=== PATIENT | female | born 1980 | race Caucasian/White ===

== ENCOUNTER 2017-06-02 15:00 | Inpatient (IN) | payer OTHER ==
[2017-06-02] MEDS ORDERED: LIDOCAINE 1% 300 MG/30 ML SDV ONE (21:57)
[2017-06-02] MEDS ORDERED: OLIVE OIL 118 ML BTL ONE (21:57)
[2017-06-02] MEDS ORDERED: OXYTOCIN 10 UNIT/ML VIAL ONE (21:58)
[2017-06-02] MEDS ORDERED: AMMONIA AROMATIC 1 EACH AMP IH ONE (21:58)
[2017-06-02] MEDS ORDERED: TERBUTALINE SULFATE 1 MG/ML VIAL ONE (21:58)
[2017-06-02] MEDS ORDERED: MISOPROSTOL 200 MCG TAB ONE (21:58)
[2017-06-02] MEDS ORDERED: LIDOCAINE 1% 300 MG/30 ML SDV SC PRN (22:22)
[2017-06-02] MEDS ORDERED: EPSOM SALT 454 GM TP PRN (22:22)
[2017-06-02] MEDS ORDERED: OLIVE OIL 118 ML BTL MISC PRN (22:22)
[2017-06-02] MEDS ORDERED: LR 1,000 ML IV PRN (22:22)
[2017-06-02] MEDS ORDERED: TERBUTALINE SULFATE 1 MG/ML VIAL IV PRN (22:22)
[2017-06-02] MEDS ORDERED: OXYTOCIN 20 UNIT in LR 1,000 ML IV PRN (22:22)
[2017-06-02 22:35] LABS: % IMMATURE GRANULYOCYTES 0.9 % (0.0-1.1); ABSOLUTE IMMATURE GRANULOCYTES 0.12 10^3/uL (0.00-0.10); ADD DIFF? NO; ADD MORPH? NO; ADD SCAN? NO; ATYPICAL LYMPHOCYTE FLAG 0 (0-99); FRAGMENT RBC FLAG 0 (0-99); HEMATOCRIT 37.2 % (38.0-47.0); LEFT SHIFT FLG 10 (0-99); LIPEMIA HEMOLYSIS FLAG 90 (0-99); MEAN CELL HEMOGLOBIN 30.3 pg (27.9-34.1); MEAN CELL HEMOGLOBIN CONCENTR. 34.9 g/dL (32.4-36.7); MEAN CELL VOLUME 86.7 fL (81.5-99.8); MEAN PLATELET VOLUME 12.3 fL (8.7-11.7); PLATELET CLUMPS FLAG 0 (0-99); PLATELET COUNT 205 10^3/uL (150-400); RED BLOOD CELL COUNT 4.29 10^6/uL (4.18-5.33)
[2017-06-02] MEDS ORDERED: fentaNYL 2MCG/ML/BUP 0.1% RTU 100 ML BAG EP ONE (22:41)
[2017-06-02] MEDS ORDERED: PHENYLEPHRINE HCL 100 MCG/ML SYR ONE (22:42)
[2017-06-02] MEDS ORDERED: fentaNYL 100 MCG/2 ML INJ ONE (22:42)
[2017-06-02] MEDS ORDERED: BUPIVACAINE 0.25% 30 ML SDV ONE (22:42)
--- NOTE | 2017-06-02 22:43 | OBPROG ---
Labor Progress Note Assessment/Plan: Assessment: Plan: Subjective/Intrapartum Course: 06/02/17 22:40 patient very uncomfortable and feeling more pressure. sve /-1. requesting epidural. anesthesia going to see patient now. Objective: 06/02/17 22:05 - SVE Dilation (cm): 5 Effacement (%): 90 Station: -1 Membranes: Intact - Contraction Pattern Assessment Current Contraction Pattern: Irregular - FHR Assessment Kinsey FHR (bpm): 150 FHR Pattern Variability: Moderate FHR Category: 1 - AP Antepartum Course: 06/02/17 22:41 initiated care at [facility] at 10 weeks. dated by LPM consistent with 10 week scan. negative innatal. abnormal 50 gram. normal 3 hour gtt. growth ultrasound at 30 weeks due to marginal cord insertion. Oxytocin Orders Assessment - Pre-Induction/Augmentation Assessment Gestational Age: 41 week(s) and 0 day(s) ICD10 Worksheet Patient Problems: Problems Problem Status Onset Delivery normal Acute First stage of labor Acute
--- NOTE | 2017-06-02 22:58 | GHP ---
[f rep st] HISTORY AND PHYSICAL DATE OF ADMISSION: 06/02/2017 ADMISSION DIAGNOSES: 1. Intrauterine 41 weeks' gestation. 2. Active labor. HISTORY OF PRESENT ILLNESS: The patient is a 37-year-old, 3, para 1-0-1-1, who is 41 weeks' gestation. She was seen in the office earlier today and was 2-3 cm dilated and contractions began in creasing in frequency and intensity. She arrived to Labor and Delivery and was found to be 4 cm dila fany and ladonna regularly. The patient's estimated date of confinement is 05/26/2017, dated by a last menstrual period of 08/25/2016, consistent with a 1st trimester ultrasound. Patient's pregnanc y has been complicated only by a marginal cord insertion for which she had a growth ultrasound in the 3rd trimester. The patient states there is good movement, but denies any vaginal bleeding or loss of fluid at this time. PAST MEDICAL HISTORY: History of shingles in September 2016. MEDICATIONS: vitamins and iron. PAST SURGICAL HISTORY: Breast augmentation at age 24. ALLERGIES: No known drug allergies. SOCIAL HISTORY: Patient is . She lives with her and their other child. She denies t obacco, alcohol, or drug use. FAMILY HISTORY: Noncontributory. ALLERGIES: No known drug allergies. CONTROL PANEL TESTER HISTORY: Menarche at age 16. Periods every 28 days, lasting 3-4 days. She is a 3, p rebekah 1-0-1-1. In 2009, she had a spontaneous vaginal delivery at [facility], of a 6-pound 14 -ounce male at 38 weeks' gestation. That child has a different father than the baby of the cu rrent . She denies any complications with that or delivery. In 07/2015, she had a spontaneous that did not require a d and C. Current has been uncomplicated. issac initiated care with [facility] in the 1st trimester. The patient denies any his tory of any abnormal Pap smears or sexually transmitted diseases. PHYSICAL EXAMINATION: VITAL SIGNS: Stable. GENERAL APPEARANCE: Alert and oriented x3, but uncomfo rtable. PSYCH: She has appropriate affect. MUSCULOSKELETAL: Grossly intact. NEUROLOGIC: Grossly intact. NECK: Mobile and supple. HEART: Rate is regular. LUNGS: Clear to auscultation bilatera lly. ABDOMEN: Gravid, nondistended, nontender. EXTREMITIES: Reveal no calf tenderness or edema. PELVIC: She is 4 cm dilated and -1 station. heart tracing is category 1. She is ladonna every 3 minutes, and is in the vertex presentation. LABORATORY DATA: The patient's labs: Blood type O positive. Antibody screen negative. Ru rajinder immune. GBS negative. HBsAg negative. HIV negative. Her 50 g glucose was 147. Her 3-0 gluc ose tolerance test was within normal limits. She had a negative screen. REVIEW OF SYSTEMS: A 10-point review of systems is negative. She states positive contractions. No loss of fluid. No vaginal bleeding. Denies any headache or changes in vision. ASSESSMENT/PLAN: A 37-year-old, 3, para 1-0-1-1, who is 41 weeks' gestation, who presents in active labor. She is requesting an epidural and will be managed expectantly. /[id number]/MODL
--- NOTE | 2017-06-03 | OBPROG ---
Labor Progress Note Assessment/Plan: Assessment: Plan: Subjective/Intrapartum Course: 06/02/17 22:40 patient very uncomfortable and feeling more pressure. sve 5/90/-1. requesting epidural. anesthesia going to see patient now. 06/02/17 23:57 patient was comfortable with epidural. made rapid progress to complete. had decel to 70's. good variability. arom - but scant fluid noted. phenylephrine given for low blood pressure. began pushing. not able to push well secondary to not feeling any of the pressure. fhts recovered between contractions. will labor down until patient feels more urge to push or heart tones show an indication to begin pushing. will start pitocin as needed. Objective: 06/02/17 22:05 Patient ABO/Rh O POSITIVE 06/02/17 22:05 - SVE Effacement (%): 100 Station: 0 Membranes: Intact Dilation Complete Date: 06/02/17 Dilation Complete Time: 23:08 - Contraction Pattern Assessment Current Contraction Pattern: Irregular - Procedures Non-surgical Procedures: Amniotomy - AP Antepartum Course: 06/02/17 22:41 initiated care at [facility] at 10 weeks. dated by LPM consistent with 10 week scan. negative innatal. abnormal 50 gram. normal 3 hour gtt. growth ultrasound at 30 weeks due to marginal cord insertion. Oxytocin Orders Assessment - Pre-Induction/Augmentation Assessment Gestational Age: 41 week(s) and 0 day(s) ICD10 Worksheet Patient Problems: Problems Problem Status Onset First stage of labor Acute
--- NOTE | 2017-06-03 00:43 | PREANESOB ---
Obstetric Pre-Anesthesia Info - General Info Proposed Procedure: Labor and delivery. : 3 Para: 1 TIMOTHY: 05/26/17 Gestational Age: 41 week(s) and 0 day(s) - Info Status: Postmature Monitors: External FHR Baseline (bpm): 130 FHR Pattern: Reassuring - Labor Status Cervical Dilation per last OB SVE: 7 Station per last OB SVE: 0 Indications for Labor Analgesia: Pain Control Labor Epidural: Proposed Anesthesia ROS: Prior labor epidural. Allergies/Adverse Reactions: Allergy/AdvReac Type Severity Reaction Status Date / Time No Known Allergies Allergy Unverified 06/02/17 22:21 Home Medications: Medication Instructions Recorded Vitamin Tablet 1 tab PO DAILY 06/02/17 Visit Medications: Generic Name Dose Route Start Last Admin Trade Name Freq PRN Reason Stop Dose Admin Lactated Ringer's 1,000 mls @ 0 mls/hr 06/02/17 22:22 Lr IV 11/29/17 22:21 PRN PRN SEE PROTOCOL CONDITIONS Protocol Per Protocol Oxytocin 20 unit/ Lactated 1,002 mls @ 150 mls/hr 06/02/17 22:22 Ringer's IV PRN PRN Post- bleeding Ibuprofen 600 mg 06/02/17 22:22 Motrin PO 11/29/17 22:21 Q6HRS PRN post , inflammation Lidocaine HCl 300 mg 06/02/17 22:22 Lidocaine Hcl 1% SC 11/29/17 22:21 ONCE PRN episiotomy Magnesium Sulfate 454 gm 06/02/17 22:22 Epsom Salt TP 11/29/17 22:21 Q1H PRN perineal discomfort [place] Oil 118 ml 06/02/17 22:22 Sweet Oil MISC 11/29/17 22:21 ONCE PRN perineal massage Terbutaline Sulfate 0.25 mg 06/02/17 22:22 Brethine IV 11/29/17 22:21 ONCE PRN Tachysystole Discontinued Medications Generic Name Dose Route Start Last Admin Trade Name Freq PRN Reason Stop Dose Admin Ammonia (Aromatic Spirit) Confirm 06/02/17 21:58 Ammonia Aromatic Administered 06/02/17 21:59 Dose 1 each IH .STK-MED ONE Bupivacaine HCl Confirm 06/02/17 22:42 Sensorcaine 0.25% Sdv Administered 06/02/17 22:43 Dose 30 ml .ROUTE .STK-MED ONE Ephedrine Sulfate Confirm 06/02/17 21:58 Ephedrine Sulfate Administered 06/02/17 21:59 Dose 50 mg .ROUTE .STK-MED ONE Fentanyl Confirm 06/02/17 22:42 Sublimaze Administered 06/02/17 22:43 Dose 100 mcg .ROUTE .STK-MED ONE Fentanyl/Bupivacaine HCl Confirm 06/02/17 22:41 Fentanyl/Bupivacaine/Ns 2 Mcg/Ml 0.1% (Premix Administered 06/02/17 22:42 Dose 100 ml EP .STK-MED ONE Lidocaine HCl Confirm 06/02/17 21:57 Lidocaine Hcl 1% Administered 06/02/17 21:58 Dose 300 mg .ROUTE .STK-MED ONE Misoprostol Confirm 06/02/17 21:58 Cytotec Administered 06/02/17 21:59 Dose 1,000 mcg .ROUTE .STK-MED ONE [place] Oil Confirm 06/02/17 21:57 Sweet Oil Administered 06/02/17 21:58 Dose 118 ml .ROUTE .STK-MED ONE Oxytocin Confirm 06/02/17 21:58 Pitocin Administered 06/02/17 21:59 Dose 40 unit .ROUTE .STK-MED ONE Phenylephrine HCl Confirm 06/02/17 22:42 Neosynephrine Administered 06/02/17 22:43 Dose 1,000 mcg .ROUTE .STK-MED ONE Terbutaline Sulfate Confirm 06/02/17 21:58 Brethine Administered 06/02/17 21:59 Dose 1 mg .ROUTE .STK-MED ONE - Anesthesia History Response to Local Anesthetics: Normal Anesthesia & Operative History: No Prior Problems Family Anesthesia History: Negative - Social History Substance Use/Abuse: Denies - Vital Signs Blood Pressure: 136/78 Heart Rate: 79 Height/Weight (Nursing): Height 172.72 cm Weight 90.718 kg - Focused Exam Neck exam: FROM Mallampati Score: Class 1 Mouth exam: normal dental/mouth exam Pulmonary: no respiratory distress Cardiovascular: regular rate and rhythym Labs: 06/02/17 22:05 Patient ABO/Rh O POSITIVE 06/02/17 22:05 - Plan Anesthetic Plan: CSE Consent Signed and on Chart: Yes Patient/Guardian Understands and Agrees to Plan: Yes Urgent/Emergent Case: Nu escobedo completed preop but documented later for safe timely pt care
[2017-06-03] MEDS ORDERED: ONDANSETRON 4 MG/2 ML VIAL IVP PRN (00:44)
[2017-06-03] MEDS ORDERED: PHENYLEPHRINE HCL 100 MCG/ML SYR IVP PRN (00:44)
--- NOTE | 2017-06-03 00:44 | POSTANESTH ---
Post Anesthetic Evaluation Cardiovascular Status: Normal, Stable, Similar to Pre-Op Cond Respiratory Status: Normal, Stable, Similar to Pre-op Cond. Level of Consciousness/Mental Status: Can Participate in Eval, Alert and Oriented Pain Control: Adequate, Prn Tx Ordered Nausea/Vomiting Control: Adequate, Prn Tx Ordered Complications Possibly Related to Anesthesia: None Noted
[2017-06-03] MEDS ORDERED: LR 500 ML IV SCH (01:00)
[2017-06-03] MEDS ORDERED: fentaNYL 2MCG/ML/BUP 0.1% RTU 100 ML EP SCH (01:00)
--- NOTE | 2017-06-03 02:09 | OBDEL ---
Info Type: Vaginal Presentation at Delivery: Vertex L&D Analgesia/Anesthesia Type: Epidural GBS+: No - Hospital Course Intrapartum: 06/02/17 22:40 patient very uncomfortable and feeling more pressure. sve 5/90/-1. requesting epidural. anesthesia going to see patient now. 06/02/17 23:57 patient was comfortable with epidural. made rapid progress to complete. had decel to 70's. good variability. arom - but scant fluid noted. phenylephrine given for low blood pressure. began pushing. not able to push well secondary to not feeling any of the pressure. fhts recovered between contractions. will labor down until patient feels more urge to push or heart tones show an indication to begin pushing. will start pitocin as needed. Indications for Delivery: Spontaneous Labor Vaginal Delivery - Delivery Provider Delivery Physician/CNM: Taya Chamorro - Labor and Delivery Onset of Contractions Date: 06/02/17 Onset of Contractions Time: 10:00 Onset of Contractions Type: Spontaneous Rupture of Membranes Date: 06/02/17 Rupture of Membranes Time: 23:12 Rupture of Membranes Type: Artificial Amniotic Fluid Color: Clear Dilation Complete Date: 06/02/17 Dilation Complete Time: 23:08 Placenta Delivery Date: 06/03/17 Placenta Delivery Time: 01:33 Total Hours of Labor: 15 Non-surgical Procedures: Amniotomy Laceration: 1st Degree Repair: 3-0 Vaginal Sponge Count Correct: Yes Vaginal Needle Count Correct: Yes Vaginal Sweep Performed: Yes EBL: 300 Delivery Events: Other (Specify) (possible tailbone fracture. baby was at 0 station. pushed. had big thud and rapid descent of head to +3) Delivery Comment: began feeling more pressure so began pushing secondary to fhts with decel into the 70s. pushed well then large thud and baby rapidly descended to +3 station. [place] Data Kinsey Delivery Date: 06/03/17 Delivery Time: 01:27 TIMOTHY: 05/26/17 Gestational Age: 41 week(s) and 1 day(s) Sex of Infant: Male Score (1 Min): 8 Score (5 Min): 9 ICD10 Worksheet Patient Problems: Problems Problem Status Onset First stage of labor Acute
[2017-06-03] MEDS ORDERED: SIMETHICONE 80 MG TAB CHEW PO PRN (02:12)
[2017-06-03] MEDS ORDERED: HYDROCODONE/APAP 5/325 TAB PO PRN (02:12)
[2017-06-03] MEDS ORDERED: HYDROCORTISONE 0.5% CREAM TP PRN (02:12)
[2017-06-03] MEDS ORDERED: ACETAMINOPHEN 325 MG TAB PO PRN (02:12)
[2017-06-03 04:59] VITALS: RESP 18
[2017-06-03 08:12] VITALS: O2SAT 97
[2017-06-03] MEDS: IBUPROFEN 600 MG TAB PO PRN ×3 (11:13→23:23)
[2017-06-03] MEDS: DOCUSATE SODIUM 100 MG CAP PO PRN (11:14)
[2017-06-03 20:40] VITALS: BP 119/72; PULSE 89; TEMP 96.9
[2017-06-04] MEDS: IBUPROFEN 600 MG TAB PO PRN ×2 (06:06→12:54)
[2017-06-04] MEDS: DOCUSATE SODIUM 100 MG CAP PO PRN (12:54)
--- NOTE | 2017-06-04 12:56 | OBPP ---
Progress Note Assessment/Plan: Assessment: 37 yo WF A1 PPD#1 doing well. Plan: DC home today. 06/04/17 12:53 Subjective/ Course: 06/04/17 12:54 Delivered @ 1AM on 06/03. Doing well. . C/o some "tail-bone" pain, but ok with sitting on donut. Reports minimal lochia or pain at laceration site. Pain OK with NSAIDs only. Desires DC home today. Objective: 06/02/17 22:05 Patient ABO/Rh O POSITIVE 06/02/17 22:05 Temp Pulse Resp BP Pulse Ox 36.1 C 89 18 119/72 97 06/03/17 19:45 06/03/17 19:45 06/03/17 19:45 06/03/17 19:45 06/03/17 19:45 Physical Exam - Physical Exam EENT: PERRL/EOMI, normal ENT inspection Neck: normal inspection Respiratory: lungs clear, normal breath sounds Cardiac/Chest: regular rate, rhythm Abdomen: normal bowel sounds, non-tender, soft Extremities: normal range of motion
--- NOTE | 2017-06-04 12:56 | OBGCSDC ---
General Delivery Information - General Info : 3 Para: 2 Abortions: 2 Type: Vaginal L&D Analgesia/Anesthesia Type: Epidural Admission Date: 06/02/17 Labs: Patient ABO/Rh O POSITIVE 06/02/17 22:05 Hct 37.2 % (38.0-47.0) L 06/02/17 22:05 - Hospital Course Antepartum: 06/02/17 22:41 initiated care at [facility] at 10 weeks. dated by LPM consistent with 10 week scan. negative innatal. abnormal 50 gram. normal 3 hour gtt. growth ultrasound at 30 weeks due to marginal cord insertion. Intrapartum: 06/02/17 22:40 patient very uncomfortable and feeling more pressure. sve /-1. requesting epidural. anesthesia going to see patient now. : 06/04/17 12:54 Delivered @ 1AM on 06/03. Doing well. . C/o some "tail-bone" pain, but ok with sitting on donut. Reports minimal lochia or pain at laceration site. Pain OK with NSAIDs only. Desires DC home today. Vaginal - Delivery Provider Delivery Physician/CNM: Taya Chamorro - Diagnosis Labor: Spontaneous Rupture of Membranes Type: Artificial Amniotic Fluid Color: Clear Laceration: 1st Degree Repair: 3-0 Delivery Events: Other (Specify) (possible tailbone fracture. baby was at 0 station. pushed. had big thud and rapid descent of head to +3) - Procedures Non-surgical Procedures: Amniotomy - Delivery Non-surgical Procedures: Amniotomy EBL: 300 [place] Data Kinsey Delivery Date: 06/03/17 Delivery Time: : TIMOTHY: 05/26/17 Gestational Age: 41 week(s) and 2 day(s) Sex of : Male Weight (gm): 3846 g Score (1 Min): 8 Score (5 Min): 9 Discharge Information - Discharge Information Prescriptions: Ibuprofen [Motrin (*)] 600 mg PO Q6HRS PRN #30 tab PRN Reason: post , inflammation Condition: Good Instruction/Follow Up: Four Weeks, Six Weeks
== END 2017-06-04 16:20 | disposition home or self-care (01) | DRG 775 ==
LOC: FLD 21:20 → FOB 06-03 03:50
PROVIDERS: ADMIT Obstetrics & Gynecology; ATTEND Obstetrics & Gynecology
PROC: 0HQ9XZZ Repair Perineum Skin, External Approach (ICD-10-PCS; principal; 2017-06-03)
PROC: 10907ZC Drainage of Amniotic Fluid, Therapeutic from Products of Conception, Via Natural or Artificial Opening (ICD-10-PCS; principal; 2017-06-03)
PROC: 10E0XZZ Delivery of Products of Conception, External Approach (ICD-10-PCS; principal; 2017-06-03)
DX: O48.0 Post-term pregnancy (principal); Z37.0 Single live birth; Z3A.41 41 weeks gestation of pregnancy; O70.0 First degree perineal laceration during delivery; O71.89 Other specified obstetric trauma
CPT/HCPCS: J2370; J3010; J3105

== ENCOUNTER → 2017-06-10 | Outpatient (CLI) | payer OTHER | LOC: FLACT 10:14 | PROVIDERS: ATTEND Obstetrics & Gynecology | DX: Z39.1 Encounter for care and examination of lactating mother (principal) | CPT/HCPCS: G0463 ==